=== PATIENT | female | born 1985 | race Caucasian/White ===

== ENCOUNTER 2018-09-05 08:17 | Emergency (ER) | payer MEDICAID ==
[~2018-09-05] VITALS: Ht 165.1 cm; Wt 49.1 kg
[2018-09-05 08:19] VITALS: Ht 165.1 cm; Wt 49.1 kg
[2018-09-05] MEDS ORDERED: ZOFRAN ODT4 MG/UDTAB PO (08:21)
[2018-09-05] MEDS ORDERED: CARAFATE1 G PO (08:21)
[2018-09-05] MEDS ORDERED: PROTONIX40 MG PO (08:21)
[2018-09-05] MEDS ORDERED: MECLIZINE HCL25 MG PO (08:22)
[2018-09-05 08:51] LABS: BASOPHILS 0.3 % (0-2); HEMATOCRIT 39.5 % (36.0-48.0); HEMOGLOBIN 13.4 g/dL (12-16); IMMATURE GRANULOCYTES 0.3 % (0-5); LYMPHOCYTES 20.3 % (15-50); MCHC 33.9 g/dL (31.0-37.0); MCV 88.4 fL (80.0-100.0); MONOCYTES 8.3 % (2-11); NEUTROPHILS 68.8 % (40-80); PLATELET COUNT 234 10x3/uL (130-400); RBC 4.47 10x6/uL (4.00-5.40); RDW 12.8 % (11.5-14.5); WBC 6.6 10x3/uL (4.8-10.8)
[2018-09-05 09:03] LABS: APTT 28.2 SECONDS (22.8-39.4); INR 1.04 (0.85-1.17); PROTIME 13.1 SECONDS (11.6-15.0)
[2018-09-05 09:08] LABS: ALBUMIN 3.9 g/dL (3.4-5.0); ALKALINE PHOSPHATASE 48 U/L (46-116); ALT (SGPT) 18 U/L (10-68); BILIRUBIN - TOTAL 0.25 mg/dL (0.2-1.3); CALC OSMOLALITY 277 mosm/kg (275-300); CALCIUM 8.5 mg/dL (8.5-10.1); CARBON DIOXIDE 26.6 mmol/L (21.0-32.0); CHLORIDE - SERUM 106 mmol/L (98-107); CREATININE - SERUM 0.7 mg/dL (0.6-1.3); GLUCOSE 83 mg/dL (74-106); POTASSIUM - SERUM 3.7 mmol/L (3.5-5.1); PROTEIN - SERUM 7.1 g/dL (6.4-8.2); SODIUM 139 mmol/L (136-145); UREA NITROGEN 14 mg/dL (7-18); eGFR NON AFRICAN AMERICAN > 90 mL/min (90-120)
[2018-09-05 10:50] VITALS: BP 104/63
== END 2018-09-05 10:56 | disposition home or self-care (01) ==
LOC: D.ER 08:17
PROVIDERS: Family Medicine
DX: R10.9 Unspecified abdominal pain (principal); Z87.19 Personal history of other diseases of the digestive system

== ENCOUNTER → 2018-09-17 11:37 | Outpatient (CLI) | payer MEDICAID ==
[2018-09-05 08:19] VITALS: BMI 18.0
[~2018-09-17 11:37] MED LIST: CARAFATE1 G PO; MECLIZINE HCL25 MG PO; PROTONIX40 MG PO; ZOFRAN ODT4 MG/UDTAB PO
[2018-09-17 12:42] LABS: BASOPHILS 0.2 % (0-2); EOSINOPHILS 1.7 % (0-7); HEMATOCRIT 38.2 % (36.0-48.0); HEMOGLOBIN 13.2 g/dL (12-16); IMMATURE GRANULOCYTES 0.2 % (0-5); LYMPHOCYTES 18.9 % (15-50); MCH 30.1 pg (26.0-34.0); MCHC 34.6 g/dL (31.0-37.0); MCV 87.2 fL (80.0-100.0); MEAN PLATELET VOLUME 9.8 fL (7.4-10.4); MONOCYTES 5.3 % (2-11); NEUTROPHILS 73.7 % (40-80); PLATELET COUNT 249 10x3/uL (130-400); RBC 4.38 10x6/uL (4.00-5.40); RDW 12.7 % (11.5-14.5); WBC 9.1 10x3/uL (4.8-10.8)
== END | disposition home or self-care (01) ==
LOC: D.LAB 11:37
PROVIDERS: ATTEND Internal Medicine Gastroenterology
DX: R11.2 Nausea with vomiting, unspecified (principal); R10.31 Right lower quadrant pain; K92.1 Melena; R63.4 Abnormal weight loss

== ENCOUNTER → 2018-10-03 08:41 | Outpatient (CLI) | payer MEDICAID ==
[2018-09-05 08:19] VITALS: BMI 18.0
== END | disposition home or self-care (01) ==
LOC: D.US 08:41
PROVIDERS: ATTEND Internal Medicine Gastroenterology
DX: R11.2 Nausea with vomiting, unspecified (principal); R10.9 Unspecified abdominal pain

== ENCOUNTER 2018-10-15 17:22 | Observation (INO) | payer MEDICAID ==
[~2018-10-15] VITALS: Ht 165.1 cm; Wt 45.4 kg
--- NOTE | 2018-10-15 17:45 | NUR ---
LABS DRAWN PER PREP MANAGER. URINE SPECIMEN OBTAINED, LABELED AT BS AND SENT WITH PREP MANAGER
[2018-10-15 17:52] LABS: BASOPHILS 0.1 % (0-2); EOSINOPHILS 1.1 % (0-7); HEMOGLOBIN 13.6 g/dL (12-16); IMMATURE GRANULOCYTES 0.3 % (0-5); LYMPHOCYTES 17.6 % (15-50); MCH 29.9 pg (26.0-34.0); MCV 87.9 fL (80.0-100.0); MEAN PLATELET VOLUME 9.8 fL (7.4-10.4); MONOCYTES 7.9 % (2-11); PLATELET COUNT 262 10x3/uL (130-400); RBC 4.55 10x6/uL (4.00-5.40); RDW 12.8 % (11.5-14.5); WBC 9.6 10x3/uL (4.8-10.8)
[2018-10-15 17:57] VITALS: BP 107/74
[2018-10-15 17:59] LABS: APPEARANCE CLEAR (CLEAR); BILIRUBIN NEGATIVE (NEGATIVE); COLOR YELLOW (YELLOW); GLUCOSE NEGATIVE (NEGATIVE); KETONE NEGATIVE (NEGATIVE); NITRITE NEGATIVE (NEGATIVE); PROTEIN NEGATIVE (NEGATIVE); SPECIFIC GRAVITY 1.015 (1.005-1.020); UROBILINOGEN NORMAL (NORMAL)
[2018-10-15 18:12] LABS: ALBUMIN 4.2 g/dL (3.4-5.0); ALKALINE PHOSPHATASE 66 U/L (46-116); ALT (SGPT) 20 U/L (10-68); CALC OSMOLALITY 273 mosm/kg (275-300); CALCIUM 8.9 mg/dL (8.5-10.1); CARBON DIOXIDE 28.7 mmol/L (21.0-32.0); CHLORIDE - SERUM 101 mmol/L (98-107); CREATININE - SERUM 0.8 mg/dL (0.6-1.3); GLUCOSE 85 mg/dL (74-106); POTASSIUM - SERUM 3.8 mmol/L (3.5-5.1); PROTEIN - SERUM 7.7 g/dL (6.4-8.2); SODIUM 137 mmol/L (136-145); UREA NITROGEN 14 mg/dL (7-18); eGFR NON AFRICAN AMERICAN 88 mL/min (90-120)
[2018-10-15 18:15] LABS: AMYLASE - SERUM 43 U/L (25-115); LIPASE 268 U/L (73-393)
[2018-10-15 18:16] LABS: TROPONIN-I < 0.017 ng/mL (0.000-0.060)
--- NOTE | 2018-10-15 18:53 | NUR ---
US TECH AT BS
--- NOTE | 2018-10-15 19:02 | NUR ---
BS REPORT TO CINTIA SERRANO AND CINTIA SEN BY SBAR FORMAT
--- NOTE | 2018-10-15 19:27 | NUR ---
PT REFUSED FULL DOSE OF MORPHINE. ONLY 2MG ADMINISTERED. NOTIFIED EDP CASPER
--- NOTE | 2018-10-15 21:55 | NUR ---
REPORT CALLED TO CINTIA MCGUIRE. ROOM DIRTY AT PRESENT
[2018-10-16 00:59] VITALS: BP 101/58; BMI 16.6
[2018-10-16 04:47] VITALS: BP 95/56
--- NOTE | 2018-10-16 07:30 | NUR ---
PT RESTING IN BED WITH SPOUSE AT BEDSIDE. NO ACUTE DISTRESS NOTED. REPORTS PAIN CURRENTLY 08/15. IV TO LEFT FOREARM WITH NS @ 75ML/HR INFUSING VIA PUMP. SITE WITHOUT REDNESS OR EDEMA. DISCUSSED UPCOMING PROCEDURE, HAVING PT SIGN CONSENTS FOR SURGICAL PROCEDURE. PT/FAMILY DENIES QUESTIONS AT THIS TIME. DENIES FURTHER NEEDS AT THIS TIME. CL WITHIN REACH. ENCOURAGED TO CALL WITH NEEDS. CONTINUE POC.
[2018-10-16 09:48] VITALS: BP 105/63
--- NOTE | 2018-10-16 09:55 | NUR ---
PT REPORTS HAVING HISTORY OF HYPOGLYCEMIA. BS CHECKED AT THIS TIME, 84. CONTACTED DR. MGCOWAN REGARDING PT STATUS AND HISTORY. NEW ORDER NOTED TO ADMINISTERE 1/2 AMP OF D50 IV X 1 DOSE. MEDICATION ADMINISTERED PER ORDERS. WILL CONTINUE TO MONITOR.
[2018-10-16 13:19] VITALS: BP 90/53
[2018-10-16 16:16] VITALS: Ht 165.1 cm; Wt 45.4 kg
[2018-10-16 18:14] VITALS: BP 116/71
--- NOTE | 2018-10-16 20:00 | NUR ---
ALERT RESTING IN BED C/O ABD PAIN, BANDAID DRESSING X 4 C/D/I, SEE SHIFT ASSESSMENT, REPORTS HAS NOT VOIDED SINCE RASHAD, INSTRUCTED TO TRY TO GO OR WILL HAVE TO DO IN AND OUT CATH, STATES DONT REALLY NEED TO YET. CALL LIGHT IN REACH
[2018-10-16 20:24] LABS: BASOPHILS 0 % (0-2); EOSINOPHILS 0.1 % (0-7); HEMATOCRIT 36.9 % (36.0-48.0); HEMOGLOBIN 12.3 g/dL (12-16); IMMATURE GRANULOCYTES 0.3 % (0-5); MCH 29.9 pg (26.0-34.0); MCHC 33.3 g/dL (31.0-37.0); MCV 89.6 fL (80.0-100.0); MEAN PLATELET VOLUME 9.6 fL (7.4-10.4); MONOCYTES 0.9 % (2-11); NEUTROPHILS 95.7 % (40-80); RBC 4.12 10x6/uL (4.00-5.40); RDW 12.7 % (11.5-14.5)
[2018-10-16 20:25] LABS: PLATELET COUNT 204 10x3/uL (130-400); WBC 15.5 10x3/uL (4.8-10.8)
[2018-10-16 21:58] VITALS: BP 100/52
--- NOTE | 2018-10-17 01:30 | NUR ---
IN AND OUT CATH DONE DUE TO UNABLE TO VOID AFTER MULTIPLE ATTEMPTS WITH BEDPAN, 650CC CLEAR YELLOW URINE RETURNED
[2018-10-17 01:37] VITALS: BP 90/46
--- NOTE | 2018-10-17 05:00 | NUR ---
ASSISTED TO BSC VOIDED WITHOUT DIFFICULTY, C/O DIZZINESS WITH STANDING, ENCOURAGED TO SIT ON SIDE OF BED
[2018-10-17 05:37] VITALS: BP 112/54
[2018-10-17 09:51] VITALS: BP 95/53
[2018-10-17 12:00] VITALS: BP 86/44
--- NOTE | 2018-10-17 16:07 | OP ---
PATIENT NAME: STEPHANIA TEJEDA MEDICAL RECORD: [id number] :87 LOCATION:[id number] ADMISSION DATE:10/15/18 SURGEON: ULISES MGCOWAN MD DATE OF OPERATION: 10/16/2018 PREOPERATIVE DIAGNOSIS: Acute cholecystitis. POSTOPERATIVE DIAGNOSES: 1. No acute cholecystitis. 2. Symptomatic gallstones. PROCEDURES: 1. Laparoscopic cholecystectomy. 2. Intraoperative cholangiography without immediate surgeon interpretation. SURGEON: Ulises Mcgowan MD PEDODONTIST: None. BLOOD LOSS: Minimal. ANESTHESIA: General. COMPLICATIONS: None. The risks, possible complications, and alternatives to the procedure were explained to the patient. She elects to proceed. The discussion specifically included, but was not limited to, bleeding requiring emergency reoperation, infection, common ductal injury. OPERATIVE COURSE: The patient was conveyed to the operating room electively on 10/16/2018. General anesthesia was induced by the anesthesia staff. The abdomen was sterilely prepped and draped. A small skin incision was accomplished in the left upper quadrant. A Veress needle was inserted through the skin incision into the peritoneal cavity. CO2 insufflation was begun. Once a sufficient pneumoperitoneum had been achieved, a 5-mm trocar was inserted through an incision in the left upper quadrant. Under direct internal vision utilizing television camera, two 5-mm trocars were inserted in the right side of the abdomen. A 12-mm trocar was inserted at the umbilicus. During insertion of the Veress needle and all trocars, there appeared to have been no injury to the bowels, any intraperitoneal or retroperitoneal structures. I advanced a cholangiogram trocar. I punctured the fundus of the gallbladder. I aspirated bile. I then injected dye. Under real time fluoroscopy, static fluoroscopic images were obtained. These were cholangiographic images. They were sent to the radiologist for interpretation. I then aspirated bile. I removed the cholangiogram trocar. The gallbladder was grasped and retracted cephalad. The infundibulum was grasped and retracted laterally. Blunt dissection was begun in the triangle of [place]ot. One cystic artery and one cystic duct were identified. These were clipped multiply and divided between clips. The gallbladder was then excised from its bed in the liver. It was placed within a bag retrieval device. It was withdrawn through the umbilical fascia OPERATIVE REPORT [id number] TEJEDA,STEPHANIA IFEANYI defect. A 12-mm trocar was replaced and the abdomen was reinsufflated. I irrigated and aspirated in the right upper quadrant. There was no bleeding even at low pressure of 8. All the trocars were removed. The umbilical fascia was closed with a horizontal mattress #0 Vicryl suture. The umbilical skin was approximated with interrupted 4-0 Vicryl Rapide sutures. The other skin incisions were closed with interrupted intracuticular 3-0 Vicryls. Benzoin and Steri-Strips were applied. The patient was then extubated and conveyed to the post-anesthesia care unit, where she was in stable condition. TRANSINT:[id number] Voice Confirmation ID: [id number] DOCUMENT ID: [id number] ULISES MCGOWAN MD at 1607 CC: [id number] DICTATION DATE: 10/16/18 174 WORKERS COMPENSATION ANALYST: 10/16/18 1807 ADM IN [place] [id number] [place] [id number]
[2018-10-17 16:51] VITALS: BP 93/36
[2018-10-17] MEDS ORDERED: HYDROCODON-ACE1 EAC7 PO (17:58)
[2018-10-17] MEDS ORDERED: COLACE100 MG PO (17:58)
--- NOTE | 2018-10-17 18:04 | NUR ---
PT IS WITHOUT DISTRESS.CALL LIGHT IN REACH
--- NOTE | 2018-10-20 13:44 | DS ---
PATIENT:STEPHANIA TEJEDA :87 MEDICAL RECORD: [id number] DISCHARGE SUMMARY ADMISSION DATE: 10/15/18 DISCHARGE DATE: 10/17/18 PRINCIPAL DIAGNOSIS: Symptomatic gallstones. PRINCIPAL PROCEDURE: Laparoscopic cholecystectomy, intraoperative cholangiography, and liver biopsy (pathology pending). HOSPITAL COURSE: The patient was admitted through the Emergency Room. Her pain was controlled with narcotic analgesia. She underwent the above operative procedure. She had some postoperative nausea, which abated. She is being dismissed home on [place] as well as [place]. I will see her in the office in 2-3 weeks. TRANSINT:[id number] Voice Confirmation ID: [id number] DOCUMENT ID: [id number] MADINA MCGOWAN MD at 1344 CC: [id number] DICTATION DATE: 10/17/181947 FAMILY PSYCHOLOGIST: 10/18/18 0255 DIS IN 10/17/18 [facility] [address] [place] [address]
== END 2018-10-17 18:36 | disposition home or self-care (01) ==
LOC: D.ER 17:22 → D.MS 20:14 → OBSVTIME 20:14 → D.MS 10-17 18:36
PROVIDERS: Family Medicine; ADMIT Surgery; ATTEND Surgery
DX: K81.0 Acute cholecystitis (principal); E11.9 Type 2 diabetes mellitus without complications

== ENCOUNTER 2018-11-18 13:02 | Emergency (ER) | payer MEDICAID ==
[~2018-11-18] VITALS: Ht 165.1 cm; Wt 45.5 kg
[~2018-11-18 13:02] MED LIST changes: +COLACE100 MG PO; +HYDROCODON-ACE1 EAC7 PO
[2018-11-18 13:19] VITALS: BP 127/83; Ht 165.1 cm; Wt 45.5 kg
[2018-11-18 17:10] LABS: APPEARANCE CLEAR (CLEAR); BILIRUBIN NEGATIVE (NEGATIVE); COLOR YELLOW (YELLOW); GLUCOSE NEGATIVE (NEGATIVE); KETONE NEGATIVE (NEGATIVE); NITRITE NEGATIVE (NEGATIVE); PROTEIN NEGATIVE (NEGATIVE); SPECIFIC GRAVITY 1.025 (1.005-1.020); UROBILINOGEN NORMAL (NORMAL)
[2018-11-18 17:12] LABS: HCG URINE NEGATIVE (NEGATIVE)
== END 2018-11-18 13:30 | disposition home or self-care (01) ==
LOC: D.ER 13:02
PROVIDERS: Family Medicine
DX: R11.0 Nausea (principal); R42 Dizziness and giddiness; E11.9 Type 2 diabetes mellitus without complications

== ENCOUNTER 2019-02-27 17:16 | Emergency (ER) | payer MEDICAID ==
[~2019-02-27] VITALS: Ht 165.1 cm; Wt 47.7 kg
[2019-02-27 17:24] VITALS: Ht 165.1 cm; Wt 47.7 kg
[2019-02-27 17:59] LABS: BASOPHILS 0.1 % (0-2); EOSINOPHILS 1.7 % (0-7); HEMATOCRIT 38.6 % (36.0-48.0); HEMOGLOBIN 12.7 g/dL (12-16); IMMATURE GRANULOCYTES 0.2 % (0-5); LYMPHOCYTES 30.3 % (15-50); MCH 29.7 pg (26.0-34.0); MCHC 32.9 g/dL (31.0-37.0); MCV 90.4 fL (80.0-100.0); MEAN PLATELET VOLUME 9.4 fL (7.4-10.4); MONOCYTES 8.4 % (2-11); NEUTROPHILS 59.3 % (40-80); PLATELET COUNT 227 10x3/uL (130-400); RBC 4.27 10x6/uL (4.00-5.40); RDW 12.9 % (11.5-14.5); WBC 8.2 10x3/uL (4.8-10.8)
[2019-02-27 18:09] LABS: CALC OSMOLALITY 277 mosm/kg (275-300); CALCIUM 8.9 mg/dL (8.5-10.1); CHLORIDE - SERUM 105 mmol/L (98-107); CREATININE - SERUM 0.8 mg/dL (0.6-1.3); POTASSIUM - SERUM 3.5 mmol/L (3.5-5.1); SODIUM 140 mmol/L (136-145); UREA NITROGEN 15 mg/dL (7-18); eGFR NON AFRICAN AMERICAN 88 mL/min (90-120)
[2019-02-27 18:17] LABS: APTT 26.7 SECONDS (22.8-39.4); GLUCOSE 70 mg/dL (74-106); INR 0.96 (0.85-1.17); PROTIME 12.3 SECONDS (11.6-15.0)
[2019-02-27 18:19] LABS: D-DIMER-QUANTITATIVE < 0.27 ug/mLFEU (0.20-0.54)
[2019-02-27 18:25] LABS: ALBUMIN 3.7 g/dL (3.4-5.0); ALKALINE PHOSPHATASE 70 U/L (46-116); ALT (SGPT) 24 U/L (10-68); BILIRUBIN - TOTAL 0.15 mg/dL (0.2-1.3); CREATINE KINASE 119 UL (21-215); PROTEIN - SERUM 7.1 g/dL (6.4-8.2)
[2019-02-27 18:32] LABS: TROPONIN-I < 0.017 ng/mL (0.000-0.060)
[2019-02-27] MEDS ORDERED: OMEPRAZOLE40 MG PO (18:51)
[2019-02-27 19:08] VITALS: BP 102/64
== END 2019-02-27 19:08 | disposition home or self-care (01) ==
LOC: D.ER 17:16
PROVIDERS: Family Medicine
DX: R07.89 Other chest pain (principal); K21.9 Gastro-esophageal reflux disease without esophagitis; E11.9 Type 2 diabetes mellitus without complications

== ENCOUNTER → 2019-04-20 17:26 | Outpatient (CLI) | payer MEDICAID ==
[2019-02-27 17:24] VITALS: BMI 17.5
[~2019-04-20 17:26] MED LIST changes: +OMEPRAZOLE40 MG PO
== END | disposition home or self-care (01) ==
LOC: D.RAD 17:26
PROVIDERS: ATTEND Nurse Practitioner
DX: M25.561 Pain in right knee (principal)

== ENCOUNTER 2019-09-25 07:34 | Emergency (ER) | payer MEDICAID ==
[~2019-09-25] VITALS: Ht 157.5 cm; Wt 50.0 kg
[2019-09-25 07:39] VITALS: Ht 157.5 cm; Wt 50.0 kg
[2019-09-25 07:56] LABS: BASOPHILS 0.3 % (0-2); EOSINOPHILS 1.3 % (0-7); HEMATOCRIT 43.6 % (36.0-48.0); HEMOGLOBIN 14.4 g/dL (12-16); IMMATURE GRANULOCYTES 0.1 % (0-5); MCH 29.6 pg (26.0-34.0); MCV 89.7 fL (80.0-100.0); MEAN PLATELET VOLUME 9.1 fL (7.4-10.4); MONOCYTES 8.2 % (2-11); NEUTROPHILS 70.1 % (40-80); PLATELET COUNT 246 10x3/uL (130-400); RBC 4.86 10x6/uL (4.00-5.40); RDW 12.8 % (11.5-14.5); WBC 7.4 10x3/uL (4.8-10.8)
[2019-09-25 08:13] LABS: HCG URINE NEGATIVE (NEGATIVE)
[2019-09-25 08:25] LABS: CALC OSMOLALITY 278 mosm/kg (275-300); CALCIUM 8.8 mg/dL (8.5-10.1); CARBON DIOXIDE 31.8 mmol/L (21.0-32.0); CHLORIDE - SERUM 105 mmol/L (98-107); CREATININE - SERUM 0.9 mg/dL (0.6-1.3); GLUCOSE 81 mg/dL (74-106); POTASSIUM - SERUM 4.2 mmol/L (3.5-5.1); SODIUM 141 mmol/L (136-145); UREA NITROGEN 11 mg/dL (7-18); eGFR NON AFRICAN AMERICAN 76 mL/min (90-120)
[2019-09-25 08:27] LABS: AMORPHOUS SEDIMENT >1+ /lpf (NONE SEEN); BACTERIA FEW /hpf (NEGATIVE); BILIRUBIN NEGATIVE (NEGATIVE); EPITHELIAL CELLS 0-5 /hpf (0-5); GLUCOSE NEGATIVE (NEGATIVE); KETONE NEGATIVE (NEGATIVE); NITRITE NEGATIVE (NEGATIVE); UROBILINOGEN NORMAL (NORMAL); WHITE CELLS - URINE RARE /hpf (NEGATIVE)
[2019-09-25 08:33] LABS: ALBUMIN 4.1 g/dL (3.4-5.0); ALKALINE PHOSPHATASE 73 U/L (30-120); ALT (SGPT) 22 U/L (10-68); AMYLASE - SERUM 66 U/L (25-115); BILIRUBIN - TOTAL 0.32 mg/dL (0.2-1.3); LIPASE 384 U/L (73-393); PROTEIN - SERUM 7.2 g/dL (6.4-8.2); TROPONIN-I < 0.017 ng/mL (0.000-0.060)
[2019-09-25] MEDS ORDERED: ZOFRAN ODT4 MG/UDTAB PO (09:53)
[2019-09-25] MEDS ORDERED: BENTYL 20 MG TA20 MG PO (09:53)
[2019-09-25 10:00] VITALS: BP 98/60
== END 2019-09-25 10:05 | disposition home or self-care (01) ==
LOC: D.ER 07:34
PROVIDERS: Family Medicine
DX: K58.9 Irritable bowel syndrome, unspecified (principal); E11.9 Type 2 diabetes mellitus without complications; R10.31 Right lower quadrant pain

== ENCOUNTER 2019-09-28 16:45 | Emergency (ER) | payer MEDICAID ==
[~2019-09-28] VITALS: Ht 157.5 cm; Wt 46.4 kg
[~2019-09-28 16:45] MED LIST changes: +BENTYL 20 MG TA20 MG PO
[2019-09-28 16:52] VITALS: BP 139/80; Ht 157.5 cm; Wt 46.4 kg
== END 2019-09-28 17:44 | disposition left against medical advice (07) ==
LOC: D.ER 16:45
DX: R10.9 Unspecified abdominal pain (principal); R11.2 Nausea with vomiting, unspecified; R19.7 Diarrhea, unspecified

== ENCOUNTER 2019-10-14 08:39 | Emergency (ER) | payer MEDICAID ==
[~2019-10-14] VITALS: Ht 157.5 cm; Wt 50.0 kg
[2019-10-14 08:46] VITALS: Ht 157.5 cm; Wt 50.0 kg
[2019-10-14 10:01] LABS: CALC OSMOLALITY 276 mosm/kg (275-300); CARBON DIOXIDE 30.4 mmol/L (21.0-32.0); CHLORIDE - SERUM 105 mmol/L (98-107); CREATININE - SERUM 0.9 mg/dL (0.6-1.3); GLUCOSE 89 mg/dL (74-106); POTASSIUM - SERUM 4.1 mmol/L (3.5-5.1); SODIUM 140 mmol/L (136-145); UREA NITROGEN 11 mg/dL (7-18); eGFR NON AFRICAN AMERICAN 76 mL/min (90-120)
[2019-10-14 10:04] LABS: BASOPHILS 0.1 % (0-2); HEMATOCRIT 44.1 % (36.0-48.0); HEMOGLOBIN 14.2 g/dL (12-16); IMMATURE GRANULOCYTES 0.1 % (0-5); LYMPHOCYTES 21.9 % (15-50); MCH 29.2 pg (26.0-34.0); MCHC 32.2 g/dL (31.0-37.0); MCV 90.7 fL (80.0-100.0); MEAN PLATELET VOLUME 9.7 fL (7.4-10.4); MONOCYTES 9.8 % (2-11); NEUTROPHILS 67.1 % (40-80); PLATELET COUNT 244 10x3/uL (130-400); RBC 4.86 10x6/uL (4.00-5.40); RDW 13.2 % (11.5-14.5); WBC 8.8 10x3/uL (4.8-10.8)
[2019-10-14 10:08] LABS: ALBUMIN 4.2 g/dL (3.4-5.0); ALKALINE PHOSPHATASE 69 U/L (30-120); ALT (SGPT) 18 U/L (10-68); BILIRUBIN - TOTAL 0.83 mg/dL (0.2-1.3); PROTEIN - SERUM 7.4 g/dL (6.4-8.2)
[2019-10-14] MEDS ORDERED: EPIPEN 2-P0.3 MG/0.3 IM (10:32)
[2019-10-14] MEDS ORDERED: PREDNISONE50 MG PO (10:32)
[2019-10-14 10:51] VITALS: BP 96/60
== END 2019-10-14 10:52 | disposition home or self-care (01) ==
LOC: D.ER 08:39
PROVIDERS: Family Medicine
DX: T78.40XA Allergy, unspecified, initial encounter (principal)

== ENCOUNTER 2019-11-19 23:37 | Emergency (ER) | payer MEDICAID ==
[~2019-11-19] VITALS: Ht 157.5 cm; Wt 47.6 kg
[~2019-11-19 23:37] MED LIST changes: +EPIPEN 2-P0.3 MG/0.3 IM; +PREDNISONE50 MG PO
[2019-11-19 23:46] VITALS: Ht 157.5 cm; Wt 47.6 kg
[2019-11-20 00:21] LABS: BASOPHILS 0.2 % (0-2); CALC OSMOLALITY 278 mosm/kg (275-300); CALCIUM 8.5 mg/dL (8.5-10.1); CARBON DIOXIDE 26.9 mmol/L (21.0-32.0); CHLORIDE - SERUM 104 mmol/L (98-107); CREATININE - SERUM 0.8 mg/dL (0.6-1.3); GLUCOSE 89 mg/dL (74-106); HEMATOCRIT 40.6 % (36.0-48.0); HEMOGLOBIN 13.5 g/dL (12-16); IMMATURE GRANULOCYTES 0.4 % (0-5); LYMPHOCYTES 22.1 % (15-50); MCH 29.5 pg (26.0-34.0); MCHC 33.3 g/dL (31.0-37.0); MCV 88.6 fL (80.0-100.0); MEAN PLATELET VOLUME 9.5 fL (7.4-10.4); MONOCYTES 9.6 % (2-11); NEUTROPHILS 66.7 % (40-80); PLATELET COUNT 273 10x3/uL (130-400); POTASSIUM - SERUM 3.9 mmol/L (3.5-5.1); RBC 4.58 10x6/uL (4.00-5.40); RDW 13.2 % (11.5-14.5); SODIUM 139 mmol/L (136-145); UREA NITROGEN 17 mg/dL (7-18); WBC 10.9 10x3/uL (4.8-10.8); eGFR NON AFRICAN AMERICAN 87 mL/min (90-120)
[2019-11-20 00:24] LABS: BILIRUBIN NEGATIVE (NEGATIVE); GLUCOSE NEGATIVE (NEGATIVE); HCG URINE NEGATIVE (NEGATIVE); KETONE NEGATIVE (NEGATIVE); NITRITE NEGATIVE (NEGATIVE); UROBILINOGEN NORMAL (NORMAL)
[2019-11-20 00:31] LABS: ALKALINE PHOSPHATASE 74 U/L (30-120); ALT (SGPT) 23 U/L (10-68); AMYLASE - SERUM 45 U/L (25-115); BILIRUBIN - TOTAL 0.27 mg/dL (0.2-1.3); LIPASE 229 U/L (73-393); PROTEIN - SERUM 7.3 g/dL (6.4-8.2)
[2019-11-20 00:37] LABS: TROPONIN-I < 0.017 ng/mL (0.000-0.060)
[2019-11-20] MEDS ORDERED: CARAFATE1 G PO (00:52)
[2019-11-20] MEDS ORDERED: PREVACID SOLUTA30 MG PO (00:52)
[2019-11-20 01:54] VITALS: BP 98/65
== END 2019-11-20 01:55 | disposition home or self-care (01) ==
LOC: D.ER 23:37
PROVIDERS: Emergency Medicine
DX: K29.70 Gastritis, unspecified, without bleeding (principal); R10.13 Epigastric pain; K21.9 Gastro-esophageal reflux disease without esophagitis; R42 Dizziness and giddiness; R11.2 Nausea with vomiting, unspecified

== ENCOUNTER → 2019-12-15 07:36 | Outpatient (CLI) | payer MEDICAID ==
[2019-11-19 23:46] VITALS: BMI 20.1
[~2019-12-15 07:36] MED LIST changes: +PREVACID SOLUTA30 MG PO
== END | disposition home or self-care (01) ==
LOC: D.NM 07:36
PROVIDERS: ATTEND Internal Medicine Gastroenterology
DX: R93.3 Abnormal findings on diagnostic imaging of other parts of digestive tract (principal)

== ENCOUNTER 2019-12-22 08:30 | Emergency (ER) | payer MEDICAID ==
[~2019-12-22] VITALS: Ht 157.5 cm; Wt 50.0 kg
[2019-12-22 08:51] VITALS: Ht 157.5 cm; Wt 50.0 kg
[2019-12-22 09:11] LABS: BASOPHILS 0.1 % (0-2); EOSINOPHILS 0.8 % (0-7); HEMATOCRIT 45.8 % (36.0-48.0); IMMATURE GRANULOCYTES 0.4 % (0-5); LYMPHOCYTES 14.9 % (15-50); MCH 29.8 pg (26.0-34.0); MCHC 32.8 g/dL (31.0-37.0); MCV 91.1 fL (80.0-100.0); MEAN PLATELET VOLUME 9.8 fL (7.4-10.4); MONOCYTES 6.5 % (2-11); NEUTROPHILS 77.3 % (40-80); PLATELET COUNT 288 10x3/uL (130-400); RBC 5.03 10x6/uL (4.00-5.40); WBC 10.3 10x3/uL (4.8-10.8)
[2019-12-22 09:29] LABS: BILIRUBIN NEGATIVE (NEGATIVE); HCG URINE NEGATIVE (NEGATIVE); KETONE NEGATIVE (NEGATIVE); NITRITE NEGATIVE (NEGATIVE); UROBILINOGEN NORMAL mg/dL (< 2)
[2019-12-22 09:33] LABS: CALC OSMOLALITY 273 mosm/kg (275-300); CALCIUM 9.1 mg/dL (8.5-10.1); CARBON DIOXIDE 28.5 mmol/L (21.0-32.0); CHLORIDE - SERUM 104 mmol/L (98-107); CREATININE - SERUM 0.8 mg/dL (0.6-1.3); GLUCOSE 74 mg/dL (74-106); POTASSIUM - SERUM 3.6 mmol/L (3.5-5.1); SODIUM 138 mmol/L (136-145); UREA NITROGEN 10 mg/dL (7-18); eGFR NON AFRICAN AMERICAN 87 mL/min (90-120)
[2019-12-22 09:38] LABS: ALBUMIN 4.5 g/dL (3.4-5.0); ALKALINE PHOSPHATASE 72 U/L (30-120); ALT (SGPT) 21 U/L (10-68); AMYLASE - SERUM 52 U/L (25-115); BILIRUBIN - TOTAL 0.38 mg/dL (0.2-1.3); LIPASE 239 U/L (73-393); PROTEIN - SERUM 8.1 g/dL (6.4-8.2)
[2019-12-22] MEDS ORDERED: PHENERGAN25 M1 PO (11:02)
[2019-12-22 11:30] VITALS: BP 114/68
== END 2019-12-22 11:33 | disposition home or self-care (01) ==
LOC: D.ER 08:30
PROVIDERS: Family Medicine
DX: R10.9 Unspecified abdominal pain (principal); R19.5 Other fecal abnormalities